=== PATIENT | male | born 1990 | race Caucasian/White ===

== ENCOUNTER 2023-03-07 08:34 | Emergency (ER) | payer BC ==
[2023-03-07] MEDS ORDERED: Diphtheria,Pertussis(Acell),Tetanus Vaccine 0.5 ML Syringe IM ONE (08:59)
[2023-03-07] MEDS ORDERED: Silver Sulfadiazine 1% Crm 400 GM Jar TOP ONE (09:12)
[2023-03-07] MEDS ORDERED: Silver Sulfadiazine 1% Crm 50 GM Tube TOP ONE ×2 (09:52→09:53)
== END 2023-03-07 10:44 | disposition home or self-care (01) ==
LOC: MW.ED 08:34
DX: T33.011A Superficial frostbite of right ear, initial encounter (principal); Z23 Encounter for immunization; X31.XXXA Exposure to excessive natural cold, initial encounter
CPT/HCPCS: 90471; 90715; 99283; A9270; 99282